=== PATIENT | female | born 1950 | race Caucasian/White ===

== ENCOUNTER 2020-06-03 09:28 | Outpatient (REF) | payer MEDICARE, SELFPAY ==
[2020-06-03 10:48] LABS: MANUAL DIFF FLAG NO
[2020-06-03 10:54] LABS: Basophils Absolute Auto 0.1 X10*3/uL (0.0-0.2); Basophils Percent Auto 0.8 % (0-2); Eosinophils Absolute Auto 0.2 X10*3/uL (0.0-0.4); Eosinophils Percent Auto 2.9 % (0-4); Hematocrit 40.3 % (37-47); Hemoglobin 13.6 g/dl (12.0-16.0); Imm Gran Abs Auto 0.02 X10*3/uL (0.00-0.03); Imm Gran Pct Auto 0.3 % (0.0-0.4); Lymphocytes Absolute Auto 2.3 X10*3/uL (1.2-4.9); Lymphocytes Percent Auto 30.8 % (20-40); Mean Corpuscular HGB Conc 33.7 g/dl (31.0-35.0); Mean Corpuscular Hemoglobin 30.6 pg (27.0-33.0); Mean Corpuscular Volume 90.8 fL (80-98); Mean Platelet Volume 9.7 fL (9.4-12.3); Monocytes Absolute Auto 0.5 X10*3/uL (0.1-1.2); Monocytes Percent Auto 6.7 % (2-11); Neutrophils Absolute Auto 4.3 X10*3/uL (2.0-8.3); Neutrophils Percent Auto 58.5 % (45-73); Platelet Count 330 X10*3/uL (160-400); Red Blood Count 4.44 X10*6/uL (4.20-5.50); Red Cell Distribution Width 12.9 % (11.0-16.0); White Blood Count 7.3 X10*3/uL (4.8-10.8)
[2020-06-03 11:27] LABS: Alanine Aminotransferase 22 U/L (0-31); Albumin Level 3.9 g/dL (3.5-5.0); Alkaline Phosphatase 112 U/L (39-117); Anion Gap 13 (12-20); Aspartate Amino Transferase 18 U/L (5-31); Bilirubin Total 0.7 mg/dL (0.0-1.0); Blood Urea Nitrogen 15 mg/dL (9-16); C Reactive Protein 0.08 mg/dL (< or = 0.50); Calcium 9.1 mg/dL (8.4-10.2); Carbon Dioxide 24 mmol/L (22-29); Chloride 108 mmol/L (96-108); Estimated Glomerular Filt Rate > 60; Glucose Random 141 mg/dL (60-115); Potassium 4.2 mmol/l (3.3-5.1); Sodium 141 mmol/L (135-145); Total Protein 6.8 g/dL (6.5-8.0)
== END 2020-06-03 09:29 | disposition home or self-care (01) ==
LOC: HO.LAB 09:28
PROVIDERS: Visit Provider Internal Medicine Gastroenterology
DX: R10.13 Epigastric pain (principal)
CPT/HCPCS: 36415; 80053; 85025; 86140

== ENCOUNTER 2020-06-09 07:05 | Outpatient (REF) | payer MEDICARE, SELFPAY ==
--- NOTE | 2020-06-09 09:00 | CT_ITS ---
EXAMINATION: CT ABDOMEN AND PELVIS WITH CONTRAST CLINICAL INFORMATION: Abdominal pain COMPARISON: 01/06/2016 TECHNIQUE: Multidetector volumetric images were obtained from the superior aspect of the liver through the pubic symphysis following administration 85 mL of Omnipaque 350 intravenous contrast. Sagittal and coronal reformatted images were obtained on the technologist's workstation. Oral contrast: Yes This CT examination was performed using dose optimization techniques as appropriate, variously including the following: *Automated exposure control *Adjustment of mA and/or kV according to patient size (this includes techniques or standardized protocols for targeted exams where dose is matched to indication/reason for exam; i.e. extremities or head) *Use of iterative reconstruction technique DLP: 527 mGy-cm FINDINGS: LUNG BASES: The visualized lung bases are unremarkable. LIVER, GALLBLADDER, AND BILIARY TREE: The liver is normal in size, shape, and attenuation. No focal hepatic lesion or biliary ductal dilatation is present. The gallbladder has been removed. PANCREAS: Unremarkable. SPLEEN: Unremarkable. ADRENAL GLANDS: Unremarkable. KIDNEYS AND URETERS: The kidneys are normal in size, shape, and attenuation. No hydronephrosis, hydroureter, or calculi seen. No perinephric stranding. BLADDER: Unremarkable. GASTROINTESTINAL TRACT: The small and large bowel are unremarkable. The appendix appears to have been removed. Small hiatal hernia. ABDOMINAL WALL: No significant hernia is appreciated. LYMPH NODES: Normal. VASCULAR: There is an IVC filter. PELVIC VISCERA: The uterus is absent. OSSEOUS STRUCTURES: Multilevel degenerative disc disease and facet arthrosis. Prominent Schmorl's nodes. T10 hemangioma. IMPRESSION: No focal inflammatory process or obstruction.
[2020-06-09] MEDS: iohexoL 350 MG/ML 100 ML INFUS..BTL IV (09:54)
[2020-06-09] MEDS: Barium Sulfate Oral (Vanilla) 450 ML ORAL.SUSP PO ×2 (09:57→09:58)
== END 2020-06-09 07:06 | disposition home or self-care (01) ==
LOC: HO.CT 07:05
PROVIDERS: Visit Provider Internal Medicine Gastroenterology
DX: R10.13 Epigastric pain (principal)
CPT/HCPCS: 74177

== ENCOUNTER → 2020-11-05 08:54 | Outpatient (BNVA) | payer MEDICARE, SELFPAY | PROVIDERS: PCP Family Medicine; Visit Provider Surgery | DX: R13.10 Dysphagia, unspecified (principal); Z87.19 Personal history of other diseases of the digestive system; Z98.890 Other specified postprocedural states | CPT/HCPCS: 99212 ==

== ENCOUNTER → 2020-11-30 15:27 | Outpatient (BNVA) | payer MEDICARE, SELFPAY | PROVIDERS: PCP Family Medicine; Visit Provider Surgery | DX: R13.10 Dysphagia, unspecified (principal); R06.02 Shortness of breath; Z98.890 Other specified postprocedural states; Z87.19 Personal history of other diseases of the digestive system | CPT/HCPCS: 99212 ==

== ENCOUNTER 2020-12-08 09:39 | Outpatient (REF) | payer MEDICARE, SELFPAY ==
--- NOTE | ~2020-12-08 | MM_ITS ---
EXAMINATION: MM SCREENING DIGITAL BREAST TOMOSYNTHESIS, BILATERAL CLINICAL INFORMATION: Screening. Asymptomatic. The lifetime risk of breast cancer based on the Tyrer-Cuzick Model is 3%. COMPARISON: Mammography: 09/08/2019, 08/26/2019, 05/31/2018 TECHNIQUE: Digital breast tomosynthesis is performed in both the craniocaudal and mediolateral oblique views along with computer-aided detection (CAD). Synthesized 2D images are generated from the tomosynthesis. Additional right MLO view is provided. FINDINGS: There are scattered areas of fibroglandular density (ACR BI-RADS breast composition Category b). Parenchymal pattern is similar to prior studies. There is no developing density or interval mass or architectural abnormality. No abnormal calcifications. The axilla and skin contours are unremarkable. No significant changes. MM/MM tomosynthesis screening BI IMPRESSION: No mammographic evidence of malignancy. ASSESSMENT: BI-RADS 1: Negative RECOMMENDATION: Routine annual mammography screening. This patient's information was entered into a reminder system with a target due date for their next mammogram.
== END 2020-12-08 09:40 | disposition home or self-care (01) ==
LOC: HO.MAMMO 09:39
PROVIDERS: PCP Family Medicine; Visit Provider Family Medicine
DX: Z12.31 Encounter for screening mammogram for malignant neoplasm of breast (principal)
CPT/HCPCS: 77063; 77067

== ENCOUNTER → 2020-12-10 09:45 | Outpatient (REF) | payer MEDICARE, SELFPAY ==
--- NOTE | 2020-12-10 09:53 | ECG_ITS ---
Test Reason : SOB Blood Pressure : / mmHG Vent. Rate : 069 BPM Atrial Rate : 069 BPM P-R Int : 130 ms QRS Dur : 078 ms QT Int : 384 ms P-R-T Axes : 041 -14 012 degrees QTc Int : 411 ms Normal sinus rhythm Low voltage QRS Inferior infarct , age undetermined Cannot rule out Anterior infarct , age undetermined Abnormal ECG When compared with ECG of 28-JAN-2020 13:53, No significant changes seen Referred By: Jesusita Zhang Electronically Signed By:BRIJESH MCCARTY
== END ==
LOC: HO.CARD 09:45
PROVIDERS: PCP Family Medicine; Visit Provider Surgery
DX: R06.02 Shortness of breath (principal)
CPT/HCPCS: 93005

== ENCOUNTER 2020-12-15 06:34 | Day surgery (SDC) | payer MEDICARE, SELFPAY ==
[2020-12-09 15:19] VITALS: BMI 33.0
--- NOTE | 2020-12-13 15:38 | MHC.SHP ---
Pre-Procedural Eval Section B Chief Complaint: dysphasia Allergies: Allergies Allergy/AdvReac Type Severity Reaction Status Date / Time No Known Allergies Allergy Unknown Verified 11/30/20 17:03 Plan I have reviewed the history and physical and performed a pertinent physical examination on my patient. No changes have occurred unless specified.
--- NOTE | 2020-12-14 09:16 | HO.ANESPROP2 ---
Documented by User: Becca Walton 12/14/20 09:17 HPI - Anesthesia Eval Consult details Narrative: 70yo F for Upper Endoscopy [facility] Active Problems Active Problems: All Active Problems (Updated 11/30/20 @ 16:58 by Jesusita Zhang MD) Dysphagia (Acute) Hx of hernia repair (Acute) Shortness of breath (Acute) History of repair of hiatal hernia (Acute) Past Medical History Medical History Back pain History of pulmonary embolism Lumbar disc disease Obesity Family History Family History Mother No problems noted. Father No problems noted. Brother No problems noted. Son No problems noted. Son No problems noted. Daughter No problems noted. Surgical History Surgical History History of repair of hiatal hernia Hx of appendectomy Hx of cholecystectomy S/P LESLYE-BSO (total abdominal hysterectomy and bilateral salpingo-oophorectomy) Status post ORIF of fracture of ankle Social History Social History Alcohol intake: never Smoking Status: Never smoker Advance Directives: Yes Advance Directives Information Provided: Yes Advance Directives on File: Yes Advance Directives Date on File: 06/09/20 Meds Allergies Allergy/AdvReac Type Severity Reaction Status Date / Time No Known Allergies Allergy Unknown Verified 11/30/20 17:03 Home Medications Medication Instructions Recorded Confirmed Last Taken Type gabapentin cap PO 12/09/20 Unknown History omeprazole 1 cap PO DAILY 12/09/20 12/09/20 Unknown History Exam Exam Date and Time: December 14, 2020 0916 Height,Weight and Vital Signs: Height 5 ft 3 in Weight 84.459 kg Assessment and Plan Assessment Anesthesia Assessment: Chart Reviewed Documented by User: Catherine Patel 12/15/20 07:39 [facility] Past Medical History Medical History Back pain History of pulmonary embolism Lumbar disc disease Obesity Family History Family History Mother No problems noted. Father No problems noted. Brother No problems noted. Son No problems noted. Son No problems noted. Daughter No problems noted. Family history of problems with anesthesia: No Surgical History Surgical History History of repair of hiatal hernia Hx of appendectomy Hx of cholecystectomy S/P LESLYE-BSO (total abdominal hysterectomy and bilateral salpingo-oophorectomy) Status post ORIF of fracture of ankle History of Problems with Anesthesia: No Social History Social History Alcohol intake: never Smoking Status: Never smoker Advance Directives: Yes Advance Directives Information Provided: Yes Advance Directives on File: Yes Advance Directives Date on File: 06/09/20 Meds Allergies Allergy/AdvReac Type Severity Reaction Status Date / Time No Known Allergies Allergy Unknown Verified 11/30/20 17:03 Home Medications Medication Instructions Recorded Confirmed Last Taken Type gabapentin cap PO 12/09/20 Unknown History omeprazole 1 cap PO DAILY 12/09/20 12/09/20 Unknown History Exam Height,Weight and Vital Signs: Vital Signs Temp Pulse Resp BP Pulse Ox 12/15/20 06:54 97.4 F 89 18 168/96 H 96 Lab Results 12/15/20 Range/Units 06:40 COVID-19 ([facility]) Negative (Negative) COVID-19 Clin Com See Note Airway Mallampati Class: II (Small mouth) TM Dist: >3cm Neck ROM: Full Heart: RRR Lungs: CTAB Assessment and Plan Assessment Anesthesia Assessment: Anesthesia Plan Discussed and Chart Reviewed Final Anesthetic Review NPO: Yes ASA Class: II Final Preanesthetic Review: No Changes in Pt Med Stat, Meds/Allgs Chart Reviewed, Consent Obtained/Reviewed and Anes Risks/Benef Reviewed Patient Risk: Intermediate Procedure Risk: Low Assessment/Block/Sedation in SS: Assess/Block/Sedation-SS Anesthetic Plan Anesthetic Plan: MAC: Disposition: Standard PACU
[2020-12-15 06:54] VITALS: BP 168/96; PULSE 89; RESP 18; TEMP 36.3; O2SAT 96
[2020-12-15] MEDS: Lactated Ringers 1,000 ML 50 ML IV (07:09)
[2020-12-15 07:13] LABS: COVID-19 Test Negative (Negative)
[2020-12-15 08:12] VITALS: BP 153/86; PULSE 80; RESP 14; TEMP 36.8; O2SAT 98
--- NOTE | 2020-12-15 08:22 | PM.OP ---
Brief Operative Note Date of Service: 12/15/20 Pre-op diagnosis: Dysphagia status post hiatal hernia repair 8 months ago as well as epigastric pain with the eating Post-op diagnosis: other (Variable stenosis with breathing at 39 cm from the incisors) Procedure: Esophagogastroduodenoscopy, gastric body polyp biopsy x2 Implants: None Surgeon: Jesusita Zhang MD Anesthesia: MAC Estimated blood loss (mL): 0 Pathology: other (Gastric body polyp biopsy x2) Condition: stable Disposition: PACU
--- NOTE | 2020-12-15 08:25 | W.PM.OPN ---
Operative Note Operative Note Date of Service: 12/15/20 Narrative: This is a 70-year-old lady status post hiatal hernia repair in April of 2020 who did well postoperatively and then about 3-4 months ago started developing some epigastric abdominal pain that is intermittent and unpredictable. She also reports having difficulty with eating and must drink 2 cups of water after eating to get a chest pain to resolve. This pain is located in the right side of the chest. Patient has known gastroparesis from an endoscopy she had about 2 months ago at [facility] where she had been NPO for 14 hours and still had a stomach full of undigested food. I had a gastric emptying study performed that showed gastroparesis as well. Patient reports she cannot live like this and I am repeating endoscopy today. Patient was brought into the operating room on the stretcher and placed in the left lateral decubitus position. A safety time-out was performed. A bite block was placed between teeth. Total intravenous anesthesia was administered using propofol by the nurse program engineer. Once the patient was adequately sedated gastroscope was placed in the posterior oropharynx and passed to the esophagus under direct vision. The esophageal mucosa was evaluated and was normal. The GE junction was located at 33 cm from the incisors and there did not appear to be a hiatal hernia. The gastroscope was then passed to the stomach where a large amounts of undigested food was found in a tubular structure in the body of the stomach. At 39 cm from the incisors there was a variable stenosis that only occurred with inhalation. Once the patient exhaled the stomach diameter was normal. The gastroscope was then passed to the distal portion of stomach there were several small polyps which were biopsied x2 for insurance verification representative sampling. Gastroscope was passed to the pre-pyloric region which was normal. The gastroscope was passed through the pylorus into the duodenum down to the 3rd portion of duodenum all of which was normal. All of these portions of the upper endoscopy were documented using photo documentation. The gastroscope was retracted back into the stomach and was used to desufflated the stomach and removed without difficulty. Patient tolerated procedure well and sent to the recovery room in stable condition.
[2020-12-15 08:27] VITALS: BP 157/89; PULSE 72; RESP 6; O2SAT 96
== END 2020-12-15 09:18 | disposition home or self-care (01) ==
PROVIDERS: PCP Family Medicine; Visit Provider Surgery
PROC: 0DJ08ZZ Inspection of Upper Intestinal Tract, Via Natural or Artificial Opening Endoscopic (ICD-10-PCS; CPT 43235; principal; 2020-12-15 07:30)
DX: R13.10 Dysphagia, unspecified (principal); K31.2 Hourglass stricture and stenosis of stomach; K31.7 Polyp of stomach and duodenum; K31.84 Gastroparesis; Z90.49 Acquired absence of other specified parts of digestive tract; Z79.899 Other long term (current) drug therapy; Z86.711 Personal history of pulmonary embolism; Z82.49 Family history of ischemic heart disease and other diseases of the circulatory system
CPT/HCPCS: 43239; 36415; 87635; 88305; 88342; C1726

== ENCOUNTER → 2020-12-23 10:22 | Outpatient (BNVA) | payer MEDICARE, SELFPAY | PROVIDERS: PCP Family Medicine; Visit Provider Surgery ==

== ENCOUNTER → 2021-01-21 09:22 | Outpatient (BNVA) | payer MEDICARE, SELFPAY | PROVIDERS: PCP Family Medicine; Referring Provider Family Medicine; Visit Provider Surgery | DX: K44.9 Diaphragmatic hernia without obstruction or gangrene (principal) | CPT/HCPCS: 99212 ==

== ENCOUNTER 2023-06-09 13:04 | Emergency (ER) | payer MEDICARE, SELFPAY ==
[2023-06-09 13:26] VITALS: BP 167/92; RESP 19; TEMP 36.6; O2SAT 98; BMI 33.5
--- NOTE | 2023-06-09 13:26 | ED.HA ---
HPI - Headache General Chief Complaint: Headache Stated Complaint: R side head pain Time Seen by Provider: 06/09/23 16:23 Source: patient, RN notes reviewed and old records reviewed Mode of arrival: ambulatory Limitations: no limitations History of Present Illness HPI Narrative: 73-year-old female presents for evaluation of right-sided headache. Patient reports that 2 weeks ago she struck the right side her head on the trunk of her car She says early monitor but she had some minor discomfort at the time There was no loss of consciousness She reports last week she struck the same side of her head on a brick that was overhanging when she walked by. Again, she did not lose consciousness but had some discomfort in the area Yesterday she developed blocked sensation in both of my ears. ? She had a headache on the right side of her head extending down towards her neck Her symptoms improved slightly with ibuprofen and warm compresses Denies any visual changes, dizziness, lightheadedness, weakness, difficulty with speech. She is not currently anticoagulated. A pre evaluation note documents the patient reported severe headache, however during my evaluation she states clearly that it is not severe, just an ache Related Data Previous Rx's Medication Instructions Recorded baclofen 5 mg tablet 5 mg PO TID PRN muscle spasm #12 06/09/23 tabs Allergies Allergy/AdvReac Type Severity Reaction Status Date / Time No Known Allergies Allergy Unknown Verified 01/21/21 09:32 Review of Systems Constitutional: Constitutional: Denies chills, Denies fever(s), Denies frequent falls and Reports headache(s) Eyes: Eyes: Denies blurry vision and Denies exophthalmos ENT: Denies otalgia, Reports headache(s) and Reports neck pain Comments: Reported fullness in both ears that has since resolved Cardiovascular: Cardiovascular: Denies chest pain and Denies dyspnea Respiratory: Respiratory: Denies cough and Denies dyspnea Gastrointestinal: Gastrointestinal: Denies abdominal pain, Denies nausea and Denies vomiting Musculoskeletal: Musculoskeletal: Denies back pain and Reports neck pain Integumentary/Breasts: Skin/Breast: Denies rash Neurologic: Denies frequent falls and Reports headache(s) [facility] Past Medical History Medical History Back pain History of pulmonary embolism Lumbar disc disease Obesity Surgical History History of repair of hiatal hernia Hx of appendectomy Hx of cholecystectomy S/P LESLYE-BSO (total abdominal hysterectomy and bilateral salpingo-oophorectomy) Status post ORIF of fracture of ankle Family History Family History Mother No problems noted. Father No problems noted. Brother No problems noted. Son No problems noted. Son No problems noted. Daughter No problems noted. Social History Social History (Updated 01/21/21 @ 10:13 by Jesusita Zhang MD) Alcohol intake: never Advance Directives: No Advance Directives Information Provided: No Advance Directives Date on File: 06/09/20 Physical Exam Vital Signs: Vital Signs: Last Vital Signs Temp 98 F 06/09/23 13:26 Pulse 84 06/09/23 16:19 Resp 18 06/09/23 16:19 BP 155/101 H 06/09/23 16:19 Pulse Ox 98 06/09/23 16:19 O2 Del Method Room Air 06/09/23 16:19 BMI result Body Mass Index 33.5 Const: General: healthy appearing, comfortable, no acute distress, alert and awake Nutritional Appearance: well nourished Orientation/consciousness: patient oriented x3 HEENT: Head: Yes No palpable skull fracture present, Yes normocephalic, Yes atraumatic, No hematoma and No laceration Ears: external ears normal, TM's normal bilaterally and no periauricular adenopathy Eyes: Eyelids: Yes eyelids normal Conjunctivae: conjunctivae normal Sclerae: sclerae normal Corneas: corneas normal Pupils: Equal, round and reactive pupils present EOM: EOMs intact bilaterally Neck: Neck: Yes full ROM Resp: Effort & Inspection: normal respiratory effort, able to speak in complete sentences and not labored Cardio: Rate: regular rate Rhythm: regular rhythm GI: Inspection: No distended Palpation (GI): Soft to palpation, not firm, nontender, no guarding and not rigid Skin: General skin exam: no rashes or lesions noted and elasticity normal Neuro: General: patient oriented x3 Cranial nerves: Yes CN's II-XII intact bilaterally, Yes Equal, round and reactive pupils present and Yes Bilaterally intact EOM present Cognition (Neuro): normal cognition Course Course Course Narrative: RME - 73 yo female presents to the ER for evaluation of severe right sided headache that started last night after hitting her head on a brick 1 week ago. Also hit her head on trunk of car 2 weeks ago. Not on anticoagulation. Last night when the head pain started she also had sensation of blocked ears which has resolved. No history of migraines. Pain is currently 5/10 after taking 4 ibuprofen this morning. No N/V, vision changes, rashes, or burning sensation. She wants to make sure nothing is wrong with her brain. Plan: CT head Medical Decision Making Medical Decision Making MDM Narrative: 73-year-old female presents for evaluation of fullness to both ears, headache and right lateral neck pain. He has no difficulty hearing, her ears are both clear on examination. She has no neuro deficits and head CT does not show any Intracranial abnormalities. This is essentially rules out traumatic injury/hematoma. NIH stroke score of 0. Given the patient has right lateral neck tenderness, the pain radiates up over the right side of her head, tension headache is the most likely diagnosis, she will be treated for this. Differential Diagnosis Differential Diagnoses: The differential diagnosis associated with the presentation includes Acute headache Tension headache Temporal arteritis less likely given the onset was after minor head trauma Intracranial hemorrhage Contusion Otitis media Otitis externa Independent Interpretation I performed an independent interpretation of an: CT Scan (Agree with Radiology interpretation, no obvious acute findings) Radiology Impression Discussion of test interpretation with radiology: I have reviewed the radiologist's reading. (No acute intracranial abnormality) Discharge Plan Discharge Clinical Impression: Acute tension headache Patient Disposition: Home, Self-Care Instructions: Tension Headache (ED) Additional Instructions: You may continue using ibuprofen/Tylenol for pain. You may take baclofen up to 3 times daily as needed for muscle spasms This may make you sleepy, do not drink alcohol or drive after taking it Use warm compresses every 4 hours for 10-15 minutes Follow-up with your primary doctor Return to the ER for any new or worsening symptoms Prescriptions: New baclofen 5 mg tablet 5 mg PO TID PRN (Reason: muscle spasm) Qty: 12 0RF
[2023-06-09 16:19] VITALS: BP 155/101; PULSE 84; RESP 18; O2SAT 98
== END 2023-06-09 16:45 | disposition home or self-care (01) ==
PROVIDERS: Emergency Provider Emergency Medicine; PCP Family Medicine
DX: G44.209 Tension-type headache, unspecified, not intractable (principal)
CPT/HCPCS: 70450; 99283; 99284